=== PATIENT | female | born 1980 | race African-American/Black ===

== ENCOUNTER 2017-09-08 23:03 | Emergency (ER) | payer OTHER ==
[~2017-09-08] VITALS: Ht 162.6 cm; Wt 89.4 kg
[~2017-09-08 23:03] MED LIST: ADVIL200 M1 PO; KETOROLAC TROME10 M1 PO; VICODIN 5-3001 EACH PO
[2017-09-08 23:47] VITALS: BP 129/76
--- NOTE | 2017-09-08 23:50 | ED GI/GU/ABDOMINAL COMPLAINT ---
History of Present Illness General Chief Complaint: Female Urogenital Problems Stated Complaint: ITCH TO VAGINAL AREA Source: patient Exam Limitations: no limitations Vital Signs & Intake/Output Vital Signs & Intake/Output Vital Signs Date Time Temp Pulse Resp B/P B/P Pulse O2 O2 Flow FiO2 Mean Ox Delivery Rate 09/08 2347 98.2 112 18 129/76 99 Room Air ED Intake and Output 09/09 0000 09/08 1200 Intake Total Output Total Balance Patient 197 lb Weight Weight Reported by Patient Measurement Method Allergies Coded Allergies: latex (Severe, RASH 05/25/17) Reconcile Medications Fluconazole (Diflucan) 150 MG TABLET 1 TAB PO ONCE VAGINAL YEAST INFECTION REPEAT IN 1 WEEK Hydrocodone/Acetaminophen (Vicodin 5-300 MG Tablet) 5 MG-300 MG TABLET 1 TAB PO BID PAIN Ibuprofen (Advil) 200 MG CAPSULE 4 CAP PO Q6H PAIN (Reported) Ketorolac Tromethamine 10 MG TABLET 1 TAB PO TID PRN PAIN/INFLAMMATION RECEIVED IM IN ER Metronidazole (Flagyl) 500 MG TABLET 1 TAB PO BID BACTERIAL VAGINOSIS Triage Nurses Notes Reviewed? yes ? n Is pt currently ? No Onset: Gradual Duration: day(s): Timing: recent history Location: vaginal Radiation: no radiation Activities at Onset: none Modifying Factors: Worsens With: other (itching/burning w/douching). Associated Symptoms: vaginal itching/burning/discharge HPI: 36 YO WOMAN presents with vaginal discharge and itching x 2 days. She notes, "I had a whitish discharge... I douched... and then the next day there was itching and more discharge." Last intercourse was 5 days ago, unprotected. She has no fever, chills, diarrhea, dysuria. She is otherwise well. Past History Travel History Traveled to [place] past 21 day No Medical History Any Pertinent Medical History? see below for history Neurological: NONE EENT: NONE Cardiovascular: NONE Respiratory: NONE Gastrointestinal: NONE Hepatic: NONE Renal: NONE Musculoskeletal: NONE Psychiatric: NONE Endocrine: NONE Blood Disorders: NONE Cancer(s): NONE IN HOME TUTOR/Reproductive: NONE Surgical History Surgical History: non-contributory Psychosocial History What is your primary language Italian Tobacco Use: Refused to answer Family History Hx Contributory? No Review of Systems Review of Systems Constitutional: Reports: no symptoms. EENTM: Reports: no symptoms. Respiratory: Reports: no symptoms. Cardiovascular: Reports: no symptoms. GI: Reports: no symptoms. Genitourinary: Reports: no symptoms. Musculoskeletal: Reports: no symptoms. Skin: Reports: no symptoms. Neurological/Psychological: Reports: no symptoms. Hematologic/Endocrine: Reports: no symptoms. Immunologic/Allergic: Reports: no symptoms. All Other Systems: Reviewed and Negative Physical Exam Physical Exam General Appearance: well developed/nourished, no apparent distress Head: atraumatic, normal appearance Eyes: Bilateral: normal appearance. Ears, Nose, Throat, Mouth: hearing grossly normal, moist mucous membrane Neck: normal inspection, full range of motion Respiratory: normal breath sounds, chest non-tender, no respiratory distress, quiet respiration, lungs clear Cardiovascular: regular rate/rhythm Gastrointestinal: normal bowel sounds, soft, non-tender, no organomegaly Pelvic: mild white/clear discharge, no cervical motion tenderness. no adnexal tenderness. normal appearing external exam Back: normal inspection Extremities: normal range of motion Neurologic/Psych: no motor/sensory deficits, awake, alert, oriented x 3 Skin: intact, normal color Core Measures ACS in differential dx? No Sepsis Present: No Sepsis Focused Exam Completed? No Progress Differential Diagnosis: gc/chlamydia, bv, yeast Plan of Care: Orders Procedure Date/time Status TRICHOMONAS 09/10 11 Active POTASSIUM HYDROXIDE (CELSA) 09/10 11 Active GENITAL CULTURE 09/10 11 Active CHLAMYDIA-GC DNA PROBE 09/10 11 Active URINE 09/08 2357 Complete URINALYSIS 09/08 2357 Complete Laboratory Tests 09/08/17 2359: Urine Color YEL, Urine Clarity CLEAR, Urine pH 6.0, Ur Specific [place] 1.025, Urine Protein NEG, Urine Ketones NEG, Urine Nitrite NEG, Urine Bilirubin NEG, Urine Urobilinogen 0.2, Ur Leukocyte Esterase NEG, Ur Microscopic EXAM NOT REQUIRED, Urine Hemoglobin NEG, Urine Glucose NEG, Urine Test NEGATIVE Microbiology 09/10 19 GENITAL: GC DNA Probe - RECD 09/10 19 GENITAL: Chlamydia DNA Probe (MATHEUS) - RECD 09/10 19 GENITAL: CELSA Preparation - RECD 09/10 19 GENITAL: Trichomonas Preparation - RECD 09/10 19 GENITAL: Genital Culture - RECD Initial ED EKG: none Departure Departure Disposition: HOME OR SELF CARE Condition: Stable Clinical Impression Primary Impression: Vaginal discharge Referrals: Leanne Nugent MD (PCP/Family) Departure Forms: Customer Survey General Discharge Information Prescriptions: Current Visit Scripts Fluconazole (Diflucan) 1 TAB PO ONCE #2 TAB REPEAT IN 1 WEEK Metronidazole (Flagyl) 1 TAB PO BID #14 TAB Comments on exam, most consistent with bacterial vaginosis, possibly yeast,.... will treat also empirically for gc/chlamydia.
[2017-09-09] MEDS ORDERED: DIFLUCAN150 M1 PO (00:22)
[2017-09-09] MEDS ORDERED: FLAGYL500 MG PO (00:22)
== END 2017-09-09 00:43 ==
LOC: ERH 23:03
DX: N89.8 Other specified noninflammatory disorders of vagina (principal)
CPT/HCPCS: 87070; 81003; 81025; 87491; 87591; 96372; J0456; J0696